=== PATIENT | female | born 1950 | race Caucasian/White ===

== ENCOUNTER → 2019-03-29 | Outpatient (CLI) | payer MEDICARE ==
[2014-11-10 10:35] VITALS: BP 129/71
[~2019-03-29] MED LIST: BIOT10TA PO; CHOL100L MC; CIPR250T30 PO; ERYT500T17 PO; HYDR-3164 PO; LACT1CAP6 PO; LEVO125T5 PO; LEVO25TA55 PO; METR500T PO; MULT-496 PO; NEOM500T PO
--- NOTE | 2019-03-29 13:16 | KCIC ---
EXAM: Dual energy x-ray absorptiometry (DEXA). HISTORY: Postmenopausal female presents for osteoporosis screening. COMPARISON: 08/20/2012. TECHNIQUE: Dual energy x-ray absorptiometry of the lumbar spine and left hip was performed. Calculation of bone mineral density based on standard deviations above or below the expected young adult normal value (T-score) was completed. FINDINGS: The average bone mineral density in the 1st through 4th lumbar vertebrae is 0.887 g/cmxcm, corresponding with a T-score of -1.5. There has been a 7.1% decrease in density of the lumbar spine compared to the prior study. The average total bone mineral density in the left hip is 0.897 g/cmxcm, corresponding with a T-score of -0.4. There has been a 7.1% decrease in density of the left hip compared to the prior study. IMPRESSION: 1. Osteopenia measured at the lumbar spine. 2. Normal bone mineral density measured at the left hip. Note: Definitions established by the World Health Organization: 1. Normal: T-score is -1.0 or above. 2. Osteopenia: T-score is between -1.0 and -2.5 . 3. Osteoporosis: T-score is -2.5 or below. Electronically signed by: Luz Cavanaugh MD (03/29/2019 1:13 PM) [place] [id number]
--- NOTE | 2019-03-29 16:11 | KCIC ---
Bilateral digital screening mammograms with 3-D tomosynthesis: Reason for examination: Routine screening. Comparison is made to previous study dated 08/20/2012. Bilateral mammograms in CC and oblique projections were obtained with 2-D imaging and 3-D tomosynthesis imaging on a Siemens Inspiration unit and reviewed on the workstation. Interpretation was made with the benefit of CAD. The skin and nipples show no abnormalities. No abnormal axillary lymph nodes are seen. The breast parenchyma shows scattered fatty and fibroglandular density. (Breast density: Category B.) There continues to be a small circumscribed nodule in the 6:00 position of the left breast which is stable. There are no new dominant masses, suspicious calcifications or architectural distortion. Benign calcifications are present. Impression: No evidence of malignancy. Recommend routine screening. BI-RAD Category 2: Benign. "Our facility is accredited by the [employer] Mammography Program." This patient's information has been entered into a reminder system for the patient to be notified with the results of her examination and a target date for the next mammogram. Electronically signed by: Marilee Reyez MD (03/29/2019 4:08 PM) [id number]
== END | disposition home or self-care (01) ==
LOC: KCIC DEXA 08:45
PROVIDERS: ATTEND Nurse Practitioner Family
DX: Z12.31 Encounter for screening mammogram for malignant neoplasm of breast (principal); Z13.820 Encounter for screening for osteoporosis; N64.89 Other specified disorders of breast; M81.0 Age-related osteoporosis without current pathological fracture; M85.88 Other specified disorders of bone density and structure, other site
CPT/HCPCS: 77063; 77067; 77080

== ENCOUNTER → 2020-01-14 | Outpatient (CLI) | payer MEDICARE ==
[2014-11-10 10:35] VITALS: BP 129/71
--- NOTE | 2020-01-14 15:37 | KCIC ---
Carotid doppler ultrasound History: Visual impairment, weakness/numbness, dizziness and lightheadedness Multiple grayscale, color, and duplex spectral analysis waveform sonographic images were acquired of the carotid, subclavian, and vertebral arteries. Comparison: None Findings: RIGHT: PSV cm/sec EDV cm/sec Common carotid artery 77 18 Maximal internal carotid artery 118 22 External carotid artery 132 Vertebral artery 56 ICA/CCA ratio 1.53 LEFT: PSV cm/sec EDV cm/sec Common carotid artery 78 16 Maximum internal carotid artery 78 24 External carotid artery 85 Vertebral artery 76 ICA/CCA ratio 1 Velocities used to determine stenosis are known to correlate with NASCET angiographic criteria. There is antegrade flow in the bilateral vertebral arteries. There is minimal plaque of the proximal left external carotid artery. No significant stenosis is demonstrated on grayscale or color images. Impression: 1. There is no evidence of a hemodynamically significant stenosis. Electronically signed by: Alex Lester MD (01/14/2020 3:34 PM) [id number]
== END | disposition home or self-care (01) ==
LOC: KCIC US 12:22
PROVIDERS: ATTEND Nurse Practitioner Family
DX: I65.22 Occlusion and stenosis of left carotid artery (principal)
CPT/HCPCS: 93880

== ENCOUNTER → 2020-12-09 | Outpatient (CLI) | payer MEDICARE ==
[2014-11-10 10:35] VITALS: BP 129/71
--- NOTE | 2020-12-09 15:28 | KCIC ---
Bilateral digital screening mammograms with 3-D tomosynthesis: Reason for examination: Routine screening. Comparison is made to previous studies dated 03/29/2019 and 08/20/2012. Bilateral mammograms in CC and oblique projections were obtained with 2-D imaging and 3-D tomosynthes is imaging on a Siemens Inspiration unit and reviewed on the workstation. Interpretation was made june monroy the benefit of CAD. The skin and nipples show no abnormalities. No abnormal axillary lymph nodes are seen. The breast par enchyma shows scattered fatty and fibroglandular density. 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 There are no new dominant m asses, suspicious calcifications or architectural distortion. Benign calcifications are present. Impression: No evidence of malignancy. Recommend routine screening. BI-RAD Category 2: Benign. "Our facility is accredited by the [employer] Mammography Program." This patient's information has been entered into a reminder system for the patient to be notified wit h the results of her examination and a target date for the next mammogram. Electronically signed by: Marilee Reyez MD (12/09/2020 3:25 PM) [id number]
== END ==
LOC: KCIC MAMMO 09:58
PROVIDERS: ATTEND Nurse Practitioner Gerontology
DX: Z12.31 Encounter for screening mammogram for malignant neoplasm of breast (principal); N64.89 Other specified disorders of breast
CPT/HCPCS: 77063; 77067